=== PATIENT | female | born 1985 | race American Indian/Alaskan Native ===

== ENCOUNTER 2017-10-16 03:26 | Emergency (ER) | payer MEDICAID ==
[2017-10-16 03:50] VITALS: BP 136/89
[2017-10-16] MEDS ORDERED: Sodium Chloride 0.9% 1,000 ML IV ONE (03:55)
--- NOTE | 2017-10-16 04:10 | EDM.PDOC ---
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 The patient reports her cramping started at about 2130 last night. The patient reports she passed what she believes was the fetus sometime. Since that time, the patient has continued to experience lower abdominal cramping and vaginal bleeding. The patient reports she took 1500 mg of Tylenol with no pain reduction. The patient reports she was seen by Saranya Lantigua last Monday ( ) due to some spotting. The patient was scheduled to have an ultrasound today due to an inconsistency in the measured age of the fetus (9 weeks) and patients estimated age (12 weeks). Onset Date: 10/15/17 Onset Time: 21:30 Duration: Constant Location: Reports: Abdomen (lower abdominal cramping), Other (vaginal bleeding) Quality: Reports: Ache, Sharp, Stabbing Severity: Severe Improves with: Reports: None Worsens with: Reports: None Context: Reports: Other Lower Abdomen Pain Score (Numeric/FACES): 10 - Related Data Allergies Allergy/AdvReac Type Severity Reaction Status Date / Time NSAIDS (Non-Steroidal Allergy Hives Verified 03/31/15 13:49 Anti-Inflamma Home Meds: Home Meds . 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: Other OB/BYN History: LMP was 05-17-2016 Social & Family History - Family History Family Medical History: Noncontributory - Tobacco Use Smoking Status *Q: Never Smoker Years of Tobacco use: 5 Second Hand Smoke Exposure: No - Caffeine Use Caffeine Use: Reports: Soda, Tea - Recreational Drug Use Recreational Drug Use: No Drug Use in Last 12 Months: Yes Recreational Drug Type: Reports: Marijuana/Hashish Recreational Drug Use Frequency: Weekly - Living Situation & Occupation Living situation: Reports: Single, with Family ED ROS GENERAL - Review of Systems Review Of Systems: ROS reveals no pertinent complaints other than HPI. ED EXAM - Physical Exam Exam: See Below Exam Limited By: No Limitations General Appearance: Alert, WD/WN, Severe Distress, Obese Eye Exam: Bilateral Eye: EOMI, Normal Inspection, PERRL Ears: Normal External Exam, Normal Canal, Hearing Grossly Normal, Normal TMs Nose: Normal Inspection, Normal Mucosa, No Blood Throat/Mouth: Normal Inspection, Normal Lips, Normal Teeth, Normal Gums, Normal Oropharynx, Normal Voice, No Airway Compromise Head: Atraumatic, Normocephalic Neck: Normal Inspection, Supple, Non-Tender, Full Range of Motion Respiratory/Chest: No Respiratory Distress, Lungs Clear, Normal Breath Sounds, No Accessory Muscle Use, Chest Non-Tender Cardiovascular: Normal Peripheral Pulses, Regular Rate, Rhythm, No Edema, No Gallop, No JVD, No Murmur, No Rub GI/Abdominal Exam: Normal Bowel Sounds, Tender (diffuse lower abdominal tenderness) Rectal Exam: Deferred Back Exam: Normal Inspection, Full Range of Motion Extremities: Normal Inspection, Normal Range of Motion, Non-Tender, Normal Capillary Refill, No Pedal Edema Neurological: Alert, Oriented, CN II-XII Intact Psychiatric: Anxious Skin Exam: Warm, Dry, Intact, Normal Color, No Rash Lymphatic: No Adenopathy Course - Vital Signs Last Recorded V/S: Last Vital Signs Temp 36.1 C 10/16/17 03:42 Pulse 88 10/16/17 03:42 Resp 21 H 10/16/17 03:42 BP 136/89 10/16/17 03:42 Pulse Ox 98 10/16/17 03:42 - Orders/Labs/Meds Orders: Active Orders 24 hr Category Date Time Status OB Ltd 1 or More Fetus [US] Urgent Exams 10/16/17 04:15 Taken OB Transvaginal [US] Urgent Exams 10/16/17 04:15 Taken DRUG SCREEN URINE BIORAD [URCHEM] Stat Lab 10/16/17 03:48 Uncollected UA W/MICROSCOPIC [URIN] Stat Lab 10/16/17 03:48 Uncollected Labs: Laboratory Tests 10/16/17 10/16/17 10/16/17 Range/Units 04:00 04:00 04:00 WBC 11.1 H (5.0-10.0) 10^3/uL RBC 3.94 L (4.2-5.4) 10^6/uL Hgb 11.6 L D (12.0-16.0) g/dL Hct 34.9 L (37.0-47.0) % MCV 88.6 (80-100) fL MCH 29.4 (27.0-34.0) pg MCHC 33.2 (33.0-35.0) g/dL Plt Count 258 (150-450) 10^3/uL Neut % (Auto) 63.6 (42.2-75.2) % Lymph % (Auto) 27.6 (20.5-50.1) % [place] % (Auto) 5.4 (2-8) % Eos % (Auto) 3.2 H (1.0-3.0) % Baso % (Auto) 0.2 (0.0-1.0) % Sodium 139 (135-145) mmol/L Potassium 3.6 (3.6-5.0) mmol/L Chloride 108 (101-111) mmol/L Carbon Dioxide 23.0 (21.0-31.0) mmol/L Anion Gap 11.6 BUN 10 (7-18) mg/dL Creatinine 0.5 L (0.6-1.3) mg/dL Est Cr Clr Drug Dosing 154.01 mL/min Estimated GFR (MDRD) > 60 BUN/Creatinine Ratio 20.00 Glucose 110 H (74-105) mg/dL Calcium 8.3 L (8.4-10.2) mg/dl Total Bilirubin 0.4 (0.2-1.0) mg/dL AST 18 (10-42) IU/L ALT 15 (10-60) IU/L Alkaline Phosphatase 42 (42-121) IU/L Total Protein 6.9 (6.7-8.2) g/dl Albumin 3.6 (3.2-5.5) g/dl Globulin 3.3 Albumin/Globulin Ratio 1.09 HCG, Quant 756 H (0-25) mIU/ml Beta HCG, Quant 1071 mIU/ml Meds: Medications Discontinued Medications Generic Name Dose Route Start Last Admin Trade Name Freq PRN Reason Stop Dose Admin Hydromorphone HCl 1 mg 10/16/17 05:22 10/16/17 05:25 Dilaudid IVPUSH 10/16/17 05:23 1 mg ONETIME ONE Administration Sodium Chloride 1,000 mls @ 999 mls/hr 10/16/17 03:55 10/16/17 04:07 Normal Saline IV 10/16/17 04:55 999 mls/hr .BOLUS ONE Administration Departure - Departure Time of Disposition: 05:43 Disposition: Home, Self-Care 01 Condition: Fair Clinical Impression: Miscarriage - Discharge Information Instructions: Miscarriage, [id number] Referrals: Saranya Lantigua SECURITY PUBLIC SAFETY OFFICER [Primary Care Provider] - Forms: ED Department Discharge Care Plan Goals: The patient and family were advised of the examination, lab and ultrasound results during the visit. The patient was given IV fluids and IV Dilaudid while in the ED. The patient was discharged with a script for Susanne () #10 to take 1 by mouth every 6 hours as needed for pain. The patient should follow-up with her primary care facility for continued evaluation and further management. - My Orders Last 24 Hours: My Active Orders 10/16/17 03:48 DRUG SCREEN URINE BIORAD [URCHEM] Stat UA W/MICROSCOPIC [URIN] Stat 10/16/17 04:15 OB Ltd 1 or More Fetus [US] Urgent OB Transvaginal [US] Urgent - Assessment/Plan Last 24 Hours: My Active Orders 10/16/17 03:48 DRUG SCREEN URINE BIORAD [URCHEM] Stat UA W/MICROSCOPIC [URIN] Stat 10/16/17 04:15 OB Ltd 1 or More Fetus [US] Urgent OB Transvaginal [US] Urgent
[2017-10-16 04:27] LABS: CHLORIDE,CL 108 mmol/L (101-111); SODIUM,NA 139 mmol/L (135-145)
[2017-10-16] MEDS ORDERED: HYDROmorphone 1 MG/ML Syringe IVPUSH ONE (05:22)
== END 2017-10-16 05:54 | disposition home or self-care (01) ==
LOC: DL.ED 03:26 → SUPCPDRO 03:26 → DL.ED 05:54
DX: O03.9 Complete or unspecified spontaneous abortion without complication (principal)
CPT/HCPCS: 36415; 76815; 76817; 80053; 84702; 85025; 96361; 96374; 99284; J1170; J7030

== ENCOUNTER 2017-11-14 07:24 | Emergency (ER) | payer OTHER, MEDICAID ==
[2017-11-14] MEDS ORDERED: Sodium Chloride 0.9% 10 ML Syringe FLUSH PRN (07:28)
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
[2017-11-14] MEDS ORDERED: Iopamidol 612 MG/ML 100 ML Bottle IVPUSH ONE (07:31)
[2017-11-14] MEDS ORDERED: Sodium Chloride 0.9% 1,000 ML IV ONE (07:39)
[2017-11-14 08:00] LABS: CHLORIDE,CL 106 mmol/L (101-111); SODIUM,NA 137 mmol/L (135-145)
[2017-11-14] MEDS ORDERED: Acetaminophen/HYDROcodone 325-10 MG Tab PO ONE (08:17)
[2017-11-14] MEDS ORDERED: Cyclobenzaprine 10 MG Tab PO ONE (08:17)
[2017-11-14] MEDS ORDERED: Cyclobenzaprine 10 MG Tab ONE (08:25)
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
== END 2017-11-14 09:33 | disposition home or self-care (01) ==
LOC: DL.ED 07:24
DX: S40.011A Contusion of right shoulder, initial encounter (principal); M62.830 Muscle spasm of back; M62.838 Other muscle spasm; Z88.8 Allergy status to other drugs, medicaments and biological substances; V47.5XXA Car driver injured in collision with fixed or stationary object in traffic accident, initial encounter
CPT/HCPCS: 36415; 70450; 71260; 72125; 73030; 74177; 80053; 80305; 81001; 81025; 82150; 83690; 85025; 85610; 85730; 93005; 99285; A9270; G0480; Q9967

== ENCOUNTER 2021-01-11 19:16 | Emergency (ER) | payer MEDICAID, OTHER ==
[2021-01-11] MEDS ORDERED: Albuterol/Ipratropium 3.0-0.5 MG/3 ML Neb Soln INH ONE (19:17)
--- NOTE | 2021-01-11 19:50 | EDM.PDOC ---
ED HPI GENERAL MEDICAL PROBLEM - General Chief Complaint: Respiratory Problem Stated Complaint: ASTHMA Time Seen by Provider: 01/11/21 19:35 Source of Information: Reports: Patient History Limitations: Reports: No Limitations - History of Present Illness INITIAL COMMENTS - FREE TEXT/NARRATIVE: This 36 yo female patient reports to the ED with a 2 day history of increased shortness of breath. The patient reports she does have a history of Asthma and has been using her son's albuterol nebulizer treatments with little to no symptom improvement. The patient reports she has been doing well for the past year, but suddenly started wheezing and experiencing shortness of breath. The patient denies fever, chills, gi symptoms or changes in taste/smell. 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 ED EXAM, GENERAL - Physical Exam Exam: See Below Exam Limited By: No Limitations General Appearance: Alert, WD/WN, Anxious, Moderate Distress, Obese Eye Exam: Bilateral Eye: EOMI, Normal Inspection, PERRL Ears: Normal External Exam, Normal Canal, Hearing Grossly Normal, Normal TMs Nose: Normal Inspection, Normal Mucosa, No Blood Throat/Mouth: Normal Inspection, Normal Lips, Normal Teeth, Normal Gums, Normal Oropharynx, Normal Voice, No Airway Compromise Head: Atraumatic, Normocephalic Neck: Normal Inspection, Supple, Non-Tender, Full Range of Motion Respiratory/Chest: Rhonchi (diffuse lower lobes bilaterally), Wheezing Cardiovascular: Normal Peripheral Pulses, Regular Rate, Rhythm, No Edema, No Gallop, No JVD, No Murmur, No Rub GI/Abdominal: Normal Bowel Sounds, Soft, Non-Tender, No Organomegaly, No Distention, No Abnormal Bruit, No Mass (Female) Exam: Deferred Rectal (Female) Exam: Deferred Back Exam: Normal Inspection, Full Range of Motion, NT Extremities: Normal Inspection, Normal Range of Motion, Non-Tender, Normal Capillary Refill, No Pedal Edema Neurological: Alert, Oriented, CN II-XII Intact, Normal Cognition, Normal Gait, Normal Reflexes, No Motor/Sensory Deficits Psychiatric: Anxious Skin Exam: Warm, Dry, Intact, Normal Color, No Rash Lymphatic: No Adenopathy Course - Vital Signs Last Recorded V/S: Last Vital Signs Temp 36.1 C 01/11/21 19:26 Pulse 94 01/11/21 19:26 Resp 18 01/11/21 19:26 BP 119/67 01/11/21 19:26 Pulse Ox 93 L 01/11/21 19:26 - Orders/Labs/Meds Orders: Active Orders 24 hr Category Date Time Status RT Aerosol Therapy [RC] ASDIRECTED Care 01/11/21 20:23 Ordered Chest 2V [CR] Urgent Exams 01/11/21 20:24 Ordered cefTRIAXone [Rocephin] 1 gm Med 01/11/21 20:49 Ordered Sodium Chloride 0.9% [Normal Saline] 50 ml IV ONETIME Medication Orders Ceftriaxone Sodium 1 gm/ (Sodium Chloride) 50 mls @ 100 mls/hr IV ONETIME ONE Stop: 01/11/21 21:18 Labs: Laboratory Tests 01/11/21 01/11/21 01/11/21 Range/Units 19:39 19:50 19:50 WBC (5.0-10.0) 10^3/uL RBC (4.2-5.4) 10^6/uL Hgb (12.0-16.0) g/dL Hct (37.0-47.0) % MCV (80-100) fL MCH (27.0-34.0) pg MCHC (33.0-35.0) g/dL Plt Count (150-450) 10^3/uL Neut % (Auto) (42.2-75.2) % Lymph % (Auto) (20.5-50.1) % [place] % (Auto) (2-8) % Eos % (Auto) (1.0-3.0) % Baso % (Auto) (0.0-1.0) % Sodium (136-145) mmol/L Potassium (3.5-5.1) mmol/L Chloride (98-107) mmol/L Carbon Dioxide (21-32) mmol/L Anion Gap (7-13) mEq/L BUN (7-18) mg/dL Creatinine (0.55-1.02) mg/dL Est Cr Clr Drug Dosing mL/min Estimated GFR (MDRD) BUN/Creatinine Ratio (No establ ref range) Glucose (70-99) mg/dL Lactic Acid (0.4-2.0) mmol/L Calcium (8.5-10.1) mg/dL Total Bilirubin (0.2-1.0) mg/dL AST (15-37) U/L ALT (14-59) U/L Alkaline Phosphatase (46-116) U/L Total Protein (6.4-8.2) g/dL Albumin (3.4-5.0) g/dL Globulin Albumin/Globulin Ratio Urine Color Yellow (YELLOW) Urine Appearance Clear (CLEAR) Urine pH 5.5 (5.0-9.0) Ur Specific [place] 1.010 (1.005-1.030) Urine Protein Negative (NEGATIVE) Urine Glucose (UA) Negative (NEGATIVE) Urine Ketones Negative (NEGATIVE) Urine Occult Blood Negative (NEGATIVE) Urine Nitrite Negative (NEGATIVE) Urine Bilirubin Negative (NEGATIVE) Urine Urobilinogen 0.2 (0.2-1.0) mg/dL Ur Leukocyte Esterase Negative (NEGATIVE) Urine HCG, Qual Negative Influenza Type A RNA Negative (NEGATIVE) Influenza Type B RNA Negative (NEGATIVE) SARS-CoV-2 RNA (JOSH) Negative (NEGATIVE) 01/11/21 01/11/21 01/11/21 Range/Units 19:56 19:56 19:56 WBC 12.5 H (5.0-10.0) 10^3/uL RBC 5.05 (4.2-5.4) 10^6/uL Hgb 14.3 D (12.0-16.0) g/dL Hct 44.3 (37.0-47.0) % MCV 87.7 (80-100) fL MCH 28.3 (27.0-34.0) pg MCHC 32.3 L (33.0-35.0) g/dL Plt Count 285 (150-450) 10^3/uL Neut % (Auto) 66.3 (42.2-75.2) % Lymph % (Auto) 18.4 L (20.5-50.1) % [place] % (Auto) 4.7 (2-8) % Eos % (Auto) 10.4 H (1.0-3.0) % Baso % (Auto) 0.2 (0.0-1.0) % Sodium 139 (136-145) mmol/L Potassium 3.1 L (3.5-5.1) mmol/L Chloride 103 (98-107) mmol/L Carbon Dioxide 27 (21-32) mmol/L Anion Gap 12.1 (7-13) mEq/L BUN 8 (7-18) mg/dL Creatinine 0.79 (0.55-1.02) mg/dL Est Cr Clr Drug Dosing 93.93 mL/min Estimated GFR (MDRD) > 60 BUN/Creatinine Ratio 10.1 (No establ ref range) Glucose 111 H (70-99) mg/dL Lactic Acid 1.8 (0.4-2.0) mmol/L Calcium 8.4 L (8.5-10.1) mg/dL Total Bilirubin 0.5 (0.2-1.0) mg/dL AST 12 L (15-37) U/L ALT 32 (14-59) U/L Alkaline Phosphatase 93 (46-116) U/L Total Protein 8.0 (6.4-8.2) g/dL Albumin 3.9 (3.4-5.0) g/dL Globulin 4.1 Albumin/Globulin Ratio 1.0 Urine Color (YELLOW) Urine Appearance (CLEAR) Urine pH (5.0-9.0) Ur Specific [place] (1.005-1.030) Urine Protein (NEGATIVE) Urine Glucose (UA) (NEGATIVE) Urine Ketones (NEGATIVE) Urine Occult Blood (NEGATIVE) Urine Nitrite (NEGATIVE) Urine Bilirubin (NEGATIVE) Urine Urobilinogen (0.2-1.0) mg/dL Ur Leukocyte Esterase (NEGATIVE) Urine HCG, Qual Influenza Type A RNA (NEGATIVE) Influenza Type B RNA (NEGATIVE) SARS-CoV-2 RNA (JOSH) (NEGATIVE) Meds: Medications Generic Name Dose Route Start Last Admin Trade Name Freq PRN Reason Stop Dose Admin Ceftriaxone Sodium 1 gm/ 50 mls @ 100 mls/hr 01/11/21 20:49 Sodium Chloride IV 01/11/21 21:18 ONETIME ONE Discontinued Medications Generic Name Dose Route Start Last Admin Trade Name Freq PRN Reason Stop Dose Admin Albuterol/Ipratropium 3 ml 01/11/21 20:23 01/11/21 20:27 Albuterol/Ipratropium 3.0-0.5 Mg/3 Ml Neb Soln NEB 01/11/21 20:24 3 ml ONETIME ONE Administration Methylprednisolone Sodium Succinate 125 mg 01/11/21 20:11 01/11/21 20:19 Methylprednisolone Sodium Succinate 125 Mg/2 Ml Sdv IVPUSH 01/11/21 20:12 125 mg ONETIME ONE Administration - Re-Assessments/Exams Free Text/Narrative Re-Assessment/Exam: 01/11/21 20:58 The patient reports symptom improvement. The patient's wheezing was significantly decreased and lung sounds were improving. Departure - Departure Time of Disposition: 20:58 Disposition: Home, Self-Care 01 Condition: Fair Clinical Impression: Exacerbation of asthma Qualifiers: Asthma severity: moderate Asthma persistence: persistent Qualified Code(s): J45.41 - Moderate persistent asthma with (acute) exacerbation - Discharge Information *PRESCRIPTION DRUG MONITORING PROGRAM REVIEWED*: Not Applicable *COPY OF PRESCRIPTION DRUG MONITORING REPORT IN PATIENT [place]: Not Applicable Instructions: Community-Acquired Pneumonia, Adult, [id number] Forms: ED Department Discharge Care Plan Goals: The patient was advised of the examination, lab, x-ray and EKG results during the visit. The patient was given in IV dose of SoluMedrol, a DuoNeb treatment and IV Rocephin while in the ED. The patient was discharged with scripts for 1) Azithromycin (250 mg) #6 to take 2 by mouth on day 1 and 1 by mouth on days 2-5, 2) Prednisone (20 mg) #10 to take 2 by mouth daily and 3) DuoNeb Solution # 1 box to use 1 treatment 3 times per day as needed. The patient was also discharged with a DuoNeb Solution to use in 8 hours as needed. If the patient has any additional symptoms or concerns, the patient should either return to the emergency department or visit her primary care facility. Sepsis Event Note (ED) - Evaluation Sepsis Screening Result: No Definite Risk - Focused Exam Vital Signs: Vital Signs Temp Pulse Resp BP Pulse Ox 01/11/21 19:26 36.1 C 94 18 119/67 93 L - My Orders Last 24 Hours: My Active Orders 01/11/21 20:23 RT Aerosol Therapy [RC] ASDIRECTED 01/11/21 20:24 Chest 2V [CR] Urgent 01/11/21 20:49 cefTRIAXone [Rocephin] 1 gm Sodium Chloride 0.9% [Normal Saline] 50 ml IV ONETIME - Assessment/Plan Last 24 Hours: My Active Orders 01/11/21 20:23 RT Aerosol Therapy [RC] ASDIRECTED 01/11/21 20:24 Chest 2V [CR] Urgent 01/11/21 20:49 cefTRIAXone [Rocephin] 1 gm Sodium Chloride 0.9% [Normal Saline] 50 ml IV ONETIME
[2021-01-11] MEDS ORDERED: methylPREDNISolone Sodium Succinate 125 MG/2 ML SDV IVPUSH ONE (20:11)
[2021-01-11 20:21] LABS: CORONAVIRUS COVID-19 NAA NEGATIVE (NEGATIVE)
[2021-01-11 20:21] LABS: ANION GAP 12.1 mEq/L (7-13); CHLORIDE,CL 103 mmol/L (98-107); SODIUM,NA 139 mmol/L (136-145)
[2021-01-11] MEDS ORDERED: Albuterol/Ipratropium 3.0-0.5 MG/3 ML Neb Soln NEB ONE (20:23)
[2021-01-11] MEDS ORDERED: cefTRIAXone 1 GM in Sodium Chloride 0.9% 50 ML IV ONE (20:49)
[2021-01-11] MEDS ORDERED: Albuterol/Ipratropium 3.0-0.5 MG/3 ML Neb Soln ONE (20:54)
--- NOTE | 2021-01-11 21:18 | CR ---
PROCEDURE INFORMATION: Exam: XR Chest Exam date and time: 01/11/2021 8:25 PM Age: 36 years old Clinical indication: Shortness of breath; Additional info: Short of breath (hx of asthma) TECHNIQUE: Imaging protocol: XR of the chest. Views: 2 views. COMPARISON: CT Chest Abdomen Pelvis w Cont 11/14/2017 7:44 AM FINDINGS: Lungs: Unremarkable. No consolidation. Pleural spaces: Unremarkable. No pleural effusion. No pneumothorax. Heart/Mediastinum: Unremarkable. No cardiomegaly. Bones/joints: Unremarkable. IMPRESSION: No acute findings.
[2021-01-11 21:26] VITALS: BP 136/72; PULSE 82
== END 2021-01-11 21:30 | disposition home or self-care (01) ==
LOC: DL.ED 19:16
DX: J45.41 Moderate persistent asthma with (acute) exacerbation (principal); Z88.6 Allergy status to analgesic agent; Z20.822 Contact with and (suspected) exposure to COVID-19
CPT/HCPCS: 0240U; 36415; 71046; 80053; 81003; 81025; 83605; 85025; 94640; 96365; 96375; 99283; 99285-25; J0696; J2930; J7620-GY

== ENCOUNTER 2022-05-21 23:31 | Emergency (ER) | payer MEDICAID ==
[2022-05-21] MEDS ORDERED: HYDROmorphone 1 MG/ML Syringe IVPUSH ONE (23:48)
[2022-05-21] MEDS ORDERED: Ondansetron 4 MG/2 ML SDV IVPUSH ONE (23:48)
[2022-05-21] MEDS ORDERED: Famotidine 20 MG/2 ML SDV IVPUSH ONE (23:48)
[2022-05-22 00:39] LABS: ANION GAP 10.3 mEq/L (7-13)
[2022-05-22 01:57] VITALS: BP 110/69; PULSE 78
== END 2022-05-22 02:11 | disposition home or self-care (01) ==
LOC: DL.ED 23:31
DX: R10.13 Epigastric pain (principal); E66.9 Obesity, unspecified; F17.210 Nicotine dependence, cigarettes, uncomplicated; Z88.8 Allergy status to other drugs, medicaments and biological substances; Z68.41 Body mass index [BMI] 40.0-44.9, adult
CPT/HCPCS: 36415; 80053; 82150; 83690; 84703; 85025; 96374; 96375; 99283; 99284-25; J1170; J2405; J3490

== ENCOUNTER 2023-09-13 20:57 | Emergency (ER) | payer SELFPAY ==
[2023-09-13 21:17] VITALS: BP 130/68; PULSE 75
[2023-09-13 21:35] LABS: BASOPHILS PERCENT AUTO 0.2 % (0.0-1.0); EOSINOPHILS PERCENT AUTO 2.2 % (1.0-3.0); HEMATOCRIT 37.2 % (37.0-47.0); HEMOGLOBIN 12.2 g/dL (12.0-16.0); LYMPHOCYTES PERCENT AUTO 39.4 % (20.5-50.1); MEAN CORPUSCULAR HEMOGLOBIN 28.8 pg (27.0-34.0); MEAN CORPUSCULAR HGB CONC 32.8 g/dL (33.0-35.0); MEAN CORPUSCULAR VOLUME 87.7 fL (80-100); MONOCYTES PERCENT AUTO 6.7 % (2-8); NEUTROPHILS PERCENT AUTO 51.5 % (42.2-75.2); PLATELET COUNT,PLT 316 10^3/uL (150-450); RED BLOOD CELL COUNT 4.24 10^6/uL (4.2-5.4); WHITE BLOOD CELL COUNT,WBC 8.4 10^3/uL (5.0-10.0)
[2023-09-13 21:36] LABS: BILIRUBIN,URINE NEGATIVE (NEGATIVE); COLOR,URINE YELLOW (YELLOW); GLUCOSE,URINE NEGATIVE (NEGATIVE); KETONES,URINE NEGATIVE (NEGATIVE); LEUKOCYTE ESTERASE,URINE TRACE (NEGATIVE); NITRITE,URINE NEGATIVE (NEGATIVE); OCCULT BLOOD,URINE LARGE (NEGATIVE); PROTEIN,URINE NEGATIVE (NEGATIVE)
[2023-09-13 21:37] LABS: APPEARANCE,URINE SLIGHTLY CLOUDY (CLEAR)
[2023-09-13 21:39] LABS: AMPHETAMINES,URINE NEGATIVE (NEGATIVE); BARBITURATES,URINE NEGATIVE (NEGATIVE); BENZODIAZEPINE,URINE NEGATIVE (NEGATIVE); MDMA (ECSTASY), URINE NEGATIVE (NEGATIVE); METHADONE,URINE NEGATIVE (NEGATIVE); METHAMPHETAMINES,URINE NEGATIVE (NEGATIVE); OPIATES,URINE NEGATIVE (NEGATIVE); OXYCODONE,URINE NEGATIVE (NEGATIVE); PHENCYCLIDINE,URINE NEGATIVE (NEGATIVE); TCA,URINE NEGATIVE (NEGATIVE)
[2023-09-13 21:46] LABS: BACTERIA,URINE FEW /HPF (0-FEW/HPF); EPITHELIAL CELLS,URINE MODERATE /HPF (NOT SEEN)
[2023-09-13 22:06] LABS: A/G RATIO 0.83; ALANINE AMINOTRANSFERASE,ALT 29 U/L (14-59); ALBUMIN 3.3 g/dL (3.4-5.0); ALKALINE PHOSPHATASE 73 U/L (46-116); ANION GAP 12.4 mEq/L (7-13); ASPARTATE AMNIOTRANSFERASE,AST 15 U/L (15-37); BILIRUBIN TOTAL 0.3 mg/dL (0.2-1.0); BLOOD UREA NITROGEN,BUN 7 mg/dL (7-18); BUN/CREATININE RATIO 9.5 (No establ ref range); CALCIUM 8.5 mg/dL (8.5-10.1); CARBON DIOXIDE,CO2 27 mmol/L (21-32); CHLORIDE,CL 104 mmol/L (98-107); CREATININE 0.74 mg/dL (0.55-1.02); EST CRCL DRUG DOSING (CG) 98.39 mL/min; ESTIMATED GFR 107 mL/min (>=60); ETHANOL BLOOD MEDICAL < 3 mg/dL (0); GLUCOSE RANDOM 177 mg/dL (70-99); MAGNESIUM 1.9 mg/dL (1.8-2.4); POTASSIUM,K 3.4 mmol/L (3.5-5.1); PROTEIN TOTAL,TP 7.3 g/dL (6.4-8.2); SODIUM,NA 140 mmol/L (136-145); TSH ULTRASENSITIVE 3.25 uIU/mL (0.36-3.74)
[2023-09-13] MEDS ORDERED: Acetaminophen 500 MG Tab PO ONE (22:35)
== END 2023-09-13 23:56 | disposition home or self-care (01) ==
LOC: DL.ED 20:57
DX: O03.9 Complete or unspecified spontaneous abortion without complication (principal); O99.211 Obesity complicating pregnancy, first trimester; Z88.8 Allergy status to other drugs, medicaments and biological substances; Z79.899 Other long term (current) drug therapy; Z87.891 Personal history of nicotine dependence; Z3A.01 Less than 8 weeks gestation of pregnancy
CPT/HCPCS: 36415; 76801; 80053; 80305; 80307; 81001; 83735; 84443; 84702; 85025; 87086; 99284; A9270